=== PATIENT | male | born 1960 | race Caucasian/White ===

== ENCOUNTER 2019-12-26 21:22 | Inpatient (IN) | payer BC, OTHER ==
[2019-12-26 23:00] VITALS: BMI 38.5
[2019-12-26] MEDS ORDERED: Sodium Chloride 0.9% 1,000 ML IV SCH (23:45)
[2019-12-27 00:59] LABS: Bacteria/HPF 2+ HPF (None Seen); Bilirubin Negative (Negative); Blood, Urine Negative (Negative); Clarity Clear (Clear); Glucose, Urine (Dipstick) Normal (Negative); Ketone, Urine Trace mg/dL (Negative); Leukocyte 250 Leu/uL (Negative); Nitrite Negative (Negative); Protein, Urine (Dipstick) 20 mg/dL (Neg-Trace); RBC/HPF 0-3 HPF (0-3); Squamous Epithelial 0-3 HPF (0-3); Urobilinogen Normal mg/dL (Less than 2); WBC/HPF Greater than 50 HPF (0-3); pH, Urine 5.5 (5.0-9.0)
[2019-12-27] MEDS ORDERED: Acetaminophen 650 MG Suppository PR PRN (01:49)
[2019-12-27] MEDS ORDERED: Calcium Carbonate 500 MG ChewTAB PO PRN (01:49)
[2019-12-27] MEDS ORDERED: Acetaminophen 325 MG TAB PO PRN ×2 (01:49→08:59)
[2019-12-27] MEDS ORDERED: Ondansetron PF 4 MG/2 ML Vial IVP PRN (01:49)
[2019-12-27] MEDS ORDERED: Ondansetron ODT 4 MG TAB PO PRN (01:49)
--- NOTE | 2019-12-27 01:57 | PDOC.HHP ---
Hospitalist HPI - History of Present Illness fever chills History of Present Illness: Case of an 59y/o male with pmhx of multiple dvts + pes, ckd and htn who comes to hospital due transfer from another ED due to fever chills. patient refers he was on his usual state of health until today when he started with fever he refers it was 106 and started with uncontrollable chills. he took some tylenol, did not improved for which he seek medical attention. there he was evaluated and found on sepsis parameters with fever at 104 and tachycardia in the 115s for which sepsis bundles were started. u/a was consistent with uti and patient has a history of recurrent prostatitis. patient denies any dysuria, hesitancy does refers some pain in pelvic area but this he refers comes and goes. he does states some darker than usual urine but no other symptoms denies cough myalgias diarrhea, does refers some headache Hospitalist ROS - Review of Systems All other systems reviewed; all pertinent +/- noted in HPI/Subj Hospitalist History - Past Medical History Source: patient - Past Surgical History Past Surgical History: reports: Cholecystectomy - Family History Family History: reports: no pertinent history - Social History Tobacco Type: snuff Alcohol: reports: None Drugs: reports: none - Exam General Appearance: NAD, awake alert Eye: PERRL, anicteric sclera ENT: normocephalic atraumatic, no oropharyngeal lesions Neck: supple, symmetric, no JVD Heart: RRR, no murmur, no gallops Respiratory: CTAB, no wheezes, no rales, no ronchi Gastrointestinal: soft, non-tender, non-distended Extremities: no cyanosis, no clubbing, no edema Skin: normal turgor, no lesions, no rashes Neurological: cranial nerve grossly intact, normal sensation to touch Musculoskeletal: normal tone, normal strength, no muscle wasting Psychiatric: normal affect, normal behavior, A&O x 3 Hospitalist Results - Labs Lab results: Lactic Acid 1.2 mmol/L (0.5-2.2) 12/27/19 00:05 Urine Ketones Trace mg/dL (Negative) A 12/27/19 00:35 Urine Blood Negative (Negative) 12/27/19 00:35 Urine Nitrite Negative (Negative) 12/27/19 00:35 Ur Leukocyte Esterase 250 Farhat/uL (Negative) A 12/27/19 00:35 Urine RBC 0-3 HPF (0-3) 12/27/19 00:35 Urine WBC Greater than 50 HPF (0-3) A 12/27/19 00:35 Ur Squamous Epith Cells 0-3 HPF (0-3) 12/27/19 00:35 Urine Bacteria 2+ HPF (None Seen) A 12/27/19 00:35 Hospitalist H&P A/P - Problem (1) Sepsis Code(s): A41.9 - SEPSIS, UNSPECIFIED ORGANISM Status: Acute (2) Complicated UTI (urinary tract infection) Code(s): N39.0 - URINARY TRACT INFECTION, SITE NOT SPECIFIED Status: Acute (3) Hx of deep venous thrombosis Code(s): Z86.718 - PERSONAL HISTORY OF OTHER VENOUS THROMBOSIS AND EMBOLISM Status: Acute (4) CKD (chronic kidney disease) Code(s): N18.9 - CHRONIC KIDNEY DISEASE, UNSPECIFIED Status: Acute - Plan Plan: Case of an 59y/o male w the stated pmhx sent from another ED due to sepsis secondary to uti sepsis / uti - patient with 106 fever 115 HR with u/a consistent with uti - sepsis bundles were started with ivfs 30x kg - blood cultures + urine culture - started on abx with levaquin - LA normal - r/o covid 19 Hx of PEs + DVTs - on warfarin - f/u inr htn - blood pressure borderline low, arrived at 80s systolic. was given 1L bolus and LA was repeated at 1.2 - holding b/p for now - pt does refer recent decrease in medication due to low b/p
[2019-12-27] MEDS: Sodium Chloride 0.9% 1,000 ML IV SCH ×2 (02:34→19:47)
[2019-12-27 03:17] LABS: SARS-CoV-2 NAA Rapid Test Not Detected (NotDetected)
[2019-12-27 07:17] LABS: INR-International Normal Ratio 3.6; PTT 41.1 sec (22.9-36.1); Prothrombin Time 35.3 sec (12.0-14.7)
[2019-12-27 07:25] LABS: ALT (SGPT) 33 U/L (8-55); AST (SGOT) 22 U/L (5-34); Albumin 3.8 g/dL (3.5-5.0); Alkaline Phosphatase 54 U/L (40-110); Anion Gap 10 mmol/L (10-20); BUN (Urea Nitrogen) 15 mg/dL (8.4-25.7); Bilirubin, Total 1.3 mg/dL (0.2-1.2); Calc. Creatinine Clearance 125 mL/min (70-130); Calcium 7.9 mg/dL (7.8-10.44); Carbon Dioxide 26 mmol/L (22-29); Chloride 104 mmol/L (98-107); Estimated GFR-MDRD 64; Globulin 2.7 g/dL (2.4-3.5); Glucose 115 mg/dL (70-105); Potassium 3.9 mmol/L (3.5-5.1); Protein, Total 6.5 g/dL (6.0-8.3); Sodium 136 mmol/L (136-145)
[2019-12-27] MEDS: Tamsulosin HCl 0.4 MG CAP PO SCH (07:59)
[2019-12-27 08:16] LABS: Band 11 % (5-11); Hemoglobin 14.8 g/dL (14.0-18.0); Lymphocytes 7 % (21-51); MDiff Complete? YES; Mean Corpuscular HGB CONC 32.7 g/dL (32.0-36.0); Mean Corpuscular Hemoglobin 32.6 pg (27.0-31.0); Mean Corpuscular Volume 99.8 fL (78.0-98.0); Mean Platelet Volume 6.2 fL (7.4-10.4); Monocytes 1 % (0-10); Neutrophil 81 % (42-75); Platelet Count 166 thou/uL (130-400); RBC Distribution Width 11.6 % (11.5-14.5); Red Blood Cell (RBC) Count 4.54 mill/uL (4.70-6.10); White Blood Cell (WBC) Count 10.2 thou/uL (4.8-10.8)
[2019-12-27] MEDS ORDERED: cefTRIAXone\\ROCEPHIN 1 GM in Sodium Chloride 0.9% 100 ML IVPB SCH (09:00)
[2019-12-27] MEDS: Acetaminophen 325 MG TAB PO PRN ×3 (12:35→23:20)
--- NOTE | 2019-12-27 18:09 | PDOC.EVN ---
Event Note - Event Note Event Note: patient endorses only symptoms are fever, chills, and sweats. Continued to have recurrent high fevers despite being on 2 different antibiotics covering complicated UTI. Oxygen saturation on RA 88%. Will repeat COVID test, check viral panel, and repeat chest xray. Escalated antibiotics as well
[2019-12-27] MEDS ORDERED: Vancomycin 1 GM in Premix Bag 1 BAG IVPB SCH (18:15)
[2019-12-27] MEDS: Vancomycin 1.5 GRAM/300 ML BAG 1.5 GM in Premix Bag 1 BAG IVPB SCH (19:48)
[2019-12-27] MEDS: HYDROcodone/Acetaminophen 5/325 mg Tablet PO PRN (20:16)
--- NOTE | 2019-12-27 20:18 | RAD ---
EXAM: Single view of the chest HISTORY: Hypoxia COMPARISON: 12/26/2019 FINDINGS: Single view of the chest shows a normal sized cardiomediastinal silhouette. There is no [place] dence of consolidation, mass, or pleural effusion. The bones are unremarkable IMPRESSION: No evidence of acute cardiopulmonary disease
[2019-12-27] MEDS: Zolpidem Tartrate 5 MG TAB PO SCH (21:18)
[2019-12-27] MEDS ORDERED: Cefepime 1 GM in Sodium Chloride 0.9% 100 ML IVPB SCH (23:00)
[2019-12-27] MEDS: Cefepime 2 GM in Sodium Chloride 0.9% 100 ML IVPB SCH (23:14)
[2019-12-28] MEDS: HYDROcodone/Acetaminophen 5/325 mg Tablet PO PRN ×3 (04:37→18:32)
[2019-12-28] MEDS: Sodium Chloride 0.9% 1,000 ML IV SCH ×2 (05:11→21:24)
[2019-12-28] MEDS ORDERED: Vancomycin 1.5 GRAM/300 ML BAG 1.5 GM in Premix Bag 1 BAG IVPB SCH (06:00)
[2019-12-28] MEDS: Acetaminophen 325 MG TAB PO PRN ×3 (06:00→18:31)
[2019-12-28 07:45] LABS: #Lymphocytes 0.8 thou/uL (1.20-3.40); #Monocytes 0.4 thou/uL (0.11-0.59); #Neutrophils 4.9 thou/uL (1.40-6.50); %Eosinophils 0.1 % (0.0-10.0); %Lymphocytes 13.4 % (21.0-51.0); %Neutrophils 79.4 % (42.0-75.0); Hemoglobin 14.2 g/dL (14.0-18.0); Mean Corpuscular HGB CONC 33.9 g/dL (32.0-36.0); Mean Corpuscular Hemoglobin 33.6 pg (27.0-31.0); Mean Corpuscular Volume 99.3 fL (78.0-98.0); Platelet Count 145 thou/uL (130-400); RBC Distribution Width 11.4 % (11.5-14.5); Red Blood Cell (RBC) Count 4.24 mill/uL (4.70-6.10); White Blood Cell (WBC) Count 6.1 thou/uL (4.8-10.8)
[2019-12-28 08:04] LABS: Anion Gap 10 mmol/L (10-20); BUN (Urea Nitrogen) 9 mg/dL (8.4-25.7); Calc. Creatinine Clearance 161 mL/min (70-130); Calcium 7.7 mg/dL (7.8-10.44); Carbon Dioxide 23 mmol/L (22-29); Chloride 106 mmol/L (98-107); Estimated GFR-MDRD 86; Glucose 109 mg/dL (70-105); Potassium 3.5 mmol/L (3.5-5.1); Sodium 135 mmol/L (136-145)
[2019-12-28] MEDS: Vancomycin 1.5 GRAM/300 ML BAG 1.5 GM in Premix Bag 1 BAG IVPB SCH ×2 (09:33→20:29)
[2019-12-28] MEDS: Tamsulosin HCl 0.4 MG CAP PO SCH (09:34)
[2019-12-28 11:55] LABS: SARS-CoV-2 MS2 Positive; SARS-CoV-2 N Gene Negative; SARS-CoV-2 S Gene Negative; SARS-CoV-2 by NAA Not Detected (NotDetected); SARS-CoV-2 orf1ab Negative
[2019-12-28] MEDS: Cefepime 2 GM in Sodium Chloride 0.9% 100 ML IVPB SCH ×2 (12:26→23:46)
[2019-12-28 16:00] LABS: INR-International Normal Ratio 1.9; Prothrombin Time 21.2 sec (12.0-14.7)
--- NOTE | 2019-12-28 16:25 | PDOC.HOSPP ---
- Subjective Encounter Date: 12/28/19 Encounter Time: 09:00 Subjective: overnight, febrile to 102.4. endorses chills and night sweats. - Objective Vital Signs & Weight: Vital Signs (12 hours) Temp Pulse Resp BP Pulse Ox 12/28/19 12:35 99.9 F H 95 16 140/83 95 12/28/19 08:19 98.0 F 70 16 117/77 95 12/28/19 06:06 99.9 F H Weight Weight 284 lb 1 oz I&O: 12/27/19 12/28/19 12/29/19 06:59 06:59 06:59 Intake Total 1270 Output Total 450 250 Balance -450 1020 Result Diagrams: 12/28/19 07:37 12/28/19 07:37 Hospitalist ROS - Review of Systems Constitutional: reports: fever, chills - Medication Medications: Active Medications Generic Name Dose Route Start Last Admin Trade Name Freq PRN Reason Stop Dose Admin Acetaminophen 650 mg 12/27/19 12:28 12/28/19 12:34 Tylenol PO 650 mg Q6H PRN Administration Headache/Fever or Pain Hydrocodone Bitart/Acetaminophen 1 tab 12/27/19 01:49 12/28/19 13:46 [place] 5/325 PO 1 tab Q4H PRN Administration Moderate Pain (4-6) Sodium Chloride 1,000 mls @ 70 mls/hr 12/27/19 02:00 12/28/19 05:11 Normal Saline 0.9% IV Not Given .[id number] JULIETTE Cefepime HCl 2 gm/ Sodium 100 mls @ 200 mls/hr 12/27/19 23:00 12/28/19 12:26 Chloride IVPB 100 mls 1100,2300 JULIETTE Administration Vancomycin HCl 1.5 gm/ Device 300 mls @ 200 mls/hr 12/27/19 20:00 12/28/19 09 :33 IVPB 300 mls 0800,2000 JULIETTE Administration Pantoprazole Sodium 40 mg 12/27/19 09:00 12/28/19 09:34 Protonix PO 40 mg DAILY JULIETTE Administration Tamsulosin HCl 0.4 mg 12/27/19 09:00 12/28/19 09:34 Flomax PO 0.4 mg DAILY JULIETTE Administration Zolpidem Tartrate 10 mg 12/27/19 21:00 12/27/19 21:18 Ambien PO 10 mg HS JULIETTE Administration
[2019-12-28] MEDS ORDERED: Vancomycin HCl 1.5 GM in Sodium Chloride 0.9% 250 ML 300 ML IVPB SCH (18:00)
[2019-12-28] MEDS: Zolpidem Tartrate 5 MG TAB PO SCH (21:22)
[2019-12-29] MEDS: HYDROcodone/Acetaminophen 5/325 mg Tablet PO PRN ×4 (00:27→20:51)
[2019-12-29] MEDS: Acetaminophen 325 MG TAB PO PRN ×2 (03:59→17:30)
[2019-12-29 07:27] LABS: INR-International Normal Ratio 1.5; Prothrombin Time 17.8 sec (12.0-14.7)
[2019-12-29 07:33] LABS: Vancomycin, Trough 10.4 ug/mL
[2019-12-29] MEDS: Tamsulosin HCl 0.4 MG CAP PO SCH (09:03)
[2019-12-29] MEDS: Vancomycin 1.5 GRAM/300 ML BAG 1.5 GM in Premix Bag 1 BAG IVPB SCH ×2 (09:57→15:16)
[2019-12-29] MEDS: Cefepime 2 GM in Sodium Chloride 0.9% 100 ML IVPB SCH ×2 (11:45→22:57)
[2019-12-29] MEDS: Sodium Chloride 0.9% 1,000 ML IV SCH (11:52)
--- NOTE | 2019-12-29 12:02 | PDOC.HOSPP ---
- Subjective Encounter Date: 12/29/19 Encounter Time: 08:30 Subjective: Patient seen and examined for complicated uti. No new complaints. No overnight events. Patient reports no pain. - Objective Vital Signs & Weight: Vital Signs (12 hours) Temp Pulse Resp BP Pulse Ox 12/29/19 11:10 97.9 F 88 20 138/84 95 12/29/19 07:14 98.0 F 78 18 143/94 H 94 L 12/29/19 04:00 98 F 89 18 144/83 H 95 Weight Weight 284 lb 1 oz I&O: 12/28/19 12/29/19 12/30/19 06:59 06:59 06:59 Intake Total 1270 2300 Output Total 250 1800 Balance 1020 500 Result Diagrams: 12/28/19 07:37 12/28/19 07:37 Hospitalist ROS - Review of Systems Constitutional: reports: other. denies: fever, chills, sweats, weakness, malaise Respiratory: denies: cough, dry, shortness of breath, hemoptysis, SOB with excertion, pleuritic pain, sputum, wheezing Cardiovascular: denies: chest pain, palpitations, edema, light headedness Gastrointestinal: denies: nausea, vomiting, abdominal pain, diarrhea, constipation, melena, hematochezia - Medication Medications: Active Medications Generic Name Dose Route Start Last Admin Trade Name Freq PRN Reason Stop Dose Admin Acetaminophen 650 mg 12/27/19 12:28 12/29/19 03:59 Tylenol PO 650 mg Q6H PRN Administration Headache/Fever or Pain Hydrocodone Bitart/Acetaminophen 1 tab 12/27/19 01:49 12/29/19 10:05 [place] 5/325 PO 1 tab Q4H PRN Administration Moderate Pain (4-6) Sodium Chloride 1,000 mls @ 70 mls/hr 12/27/19 02:00 12/29/19 11:52 Normal Saline 0.9% IV 1,000 mls .[id number] JULIETTE Administration Cefepime HCl 2 gm/ Sodium 100 mls @ 200 mls/hr 12/27/19 23:00 12/29/19 11:45 Chloride IVPB 100 mls 1100,2300 JULIETTE Administration Pantoprazole Sodium 40 mg 12/27/19 09:00 12/29/19 09:03 Protonix PO 40 mg DAILY JULIETTE Administration Tamsulosin HCl 0.4 mg 12/27/19 09:00 12/29/19 09:03 Flomax PO 0.4 mg DAILY JULIETTE Administration Zolpidem Tartrate 10 mg 12/27/19 21:00 12/28/19 21:22 Ambien PO 10 mg HS JULIETTE Administration - Exam General Appearance: awake alert Heart: RRR, no murmur, no gallops, no rubs, normal peripheral pulses Respiratory: CTAB, no wheezes, no rales, no ronchi, normal chest expansion, no tachypnea, normal percussion Gastrointestinal: soft, non-tender, non-distended, normal bowel sounds, no palpable masses, no hepatomegaly, no splenomegaly, no bruit, no guarding, no rigidity Extremities: no edema Hosp A/P - Plan DVT proph w/lovenox uti - started on abx with levaquin - LA normal -sepsis is now resolved after antibiotic regimen -nasopharyngeal swab and urine analysis results were NTD - covid 19 ruled out SOB on exertion -will order cardiac stress test to asses heart function Hx of PEs + DVTs - on warfarin - f/u inr htn - manage htn with home regimen ELOS: 2 nights
[2019-12-29] MEDS: Warfarin Sodium 5 MG TAB PO SCH ×2 (15:08→17:28)
[2019-12-29] MEDS: Zolpidem Tartrate 5 MG TAB PO SCH (21:32)
[2019-12-30] MEDS: Sodium Chloride 0.9% 1,000 ML IV SCH ×2 (02:11→15:07)
[2019-12-30 07:23] LABS: INR-International Normal Ratio 1.2; Prothrombin Time 15.5 sec (12.0-14.7)
[2019-12-30 07:36] LABS: Vancomycin, Trough 22.3 ug/mL
[2019-12-30] MEDS ORDERED: Vancomycin HCl 1.25 GM in Sodium Chloride 0.9% 250 ML 250 ML IVPB SCH (09:00)
[2019-12-30] MEDS: Vancomycin 1.5 GRAM/300 ML BAG 1.5 GM in Premix Bag 1 BAG IVPB SCH ×2 (09:17)
[2019-12-30] MEDS: Tamsulosin HCl 0.4 MG CAP PO SCH (10:26)
--- NOTE | 2019-12-30 11:00 | NM ---
EXAM: NM Cardiac Stress W EF WF PROVIDED CLINICAL HISTORY: Dyspnea on exertion/vague chest pressure COMPARISON: None FINDINGS: No significant reversible defect is seen between the stress and resting acquisitions. Gated images de monstrate normal ventricular wall motion and wall thickening. Calculated left ventricular ejection fraction is 64%. IMPRESSION: 1. Normal myocardial perfusion study without a significant reversible defect seen to suggest ischemia . 2. Normal LVEF of 64%.
[2019-12-30 11:48] VITALS: BP 125/82; TEMP 98
[2019-12-30] MEDS: Cefepime 2 GM in Sodium Chloride 0.9% 100 ML IVPB SCH (12:00)
--- NOTE | 2019-12-30 12:27 | PDOC.HOSPP ---
- Subjective Encounter Date: 12/30/19 - Objective Vital Signs & Weight: Vital Signs (12 hours) Temp Pulse Resp BP Pulse Ox 12/30/19 11:43 98.0 F 76 18 125/82 95 12/30/19 07:41 98.1 F 70 18 124/80 96 Weight Weight 284 lb 1 oz I&O: 12/29/19 12/30/19 12/31/19 06:59 06:59 06:59 Intake Total 2300 2550 Output Total 1800 1651 Balance 500 899 Result Diagrams: 12/28/19 07:37 12/28/19 07:37 Hospitalist ROS - Medication Medications: Active Medications Generic Name Dose Route Start Last Admin Trade Name Freq PRN Reason Stop Dose Admin Acetaminophen 650 mg 12/27/19 12:28 12/29/19 17:30 Tylenol PO 650 mg Q6H PRN Administration Headache/Fever or Pain Hydrocodone Bitart/Acetaminophen 1 tab 12/27/19 01:49 12/29/19 20:51 [place] 5/325 PO 1 tab Q4H PRN Administration Moderate Pain (4-6) Sodium Chloride 1,000 mls @ 70 mls/hr 12/27/19 02:00 12/30/19 02:11 Normal Saline 0.9% IV Not Given .[id number] JULIETTE Cefepime HCl 2 gm/ Sodium 100 mls @ 200 mls/hr 12/27/19 23:00 12/29/19 22:57 Chloride IVPB 100 mls 1100,2300 JULIETTE Administration Vancomycin HCl 1.25 gm/ Sodium 250 mls @ 166.667 mls/hr 12/30/19 09:00 10:26 Chloride IVPB 250 mls 0100,0900,1700 JULIETTE Administration Pantoprazole Sodium 40 mg 12/27/19 09:00 12/30/19 10:26 Protonix PO 40 mg DAILY JULIETTE Administration Tamsulosin HCl 0.4 mg 12/27/19 09:00 12/30/19 10:26 Flomax PO 0.4 mg DAILY JULIETTE Administration Zolpidem Tartrate 10 mg 12/27/19 21:00 12/29/19 21:32 Ambien PO 10 mg HS JULIETTE Administration Hosp A/P - Plan uti - started on abx with levaquin - LA normal -sepsis is now resolved after antibiotic regimen -nasopharyngeal swab and urine analysis results were NTD - covid 19 ruled out SOB on exertion -will order cardiac stress test to asses heart function Hx of PEs + DVTs - on warfarin - f/u inr htn - manage htn with home regimen ELOS: 2 nights
[2019-12-30] MEDS: HYDROcodone/Acetaminophen 5/325 mg Tablet PO PRN (13:32)
[2019-12-30] MEDS ORDERED: Warfarin Sodium 7.5 MG TAB PO SCH (17:00)
--- NOTE | 2019-12-30 22:32 | DIS ---
DATE OF ADMISSION: 12/26/2019 DATE OF DISCHARGE: 12/30/2019 HOSPITAL COURSE: Mr. Casanova is a 59-year-old male with a medical history of recurrent PE, DVTs, hypertension, and CKD, who presented with fever, chills and sweats. He was treated at another hospital with antibiotics, but the fevers persisted, so he came to [facility]. Urinalysis was positive for bacteriuria and pyuria, and antibiotics were given in the ED. Urine culture was collected after antibiotics were given, so the urine culture was negative. The patient continued to spike fevers in the hospital as high as 103 Fahrenheit. However, after changing the antibiotics to vancomycin and cefepime, it seemed fever subsided for more than 48 hours. He was discharged on Bactrim with followup appointment with his primary care physician. The patient also complained about dyspnea on exertion. The patient underwent a stress test that was negative for inducible ischemia. PHYSICAL EXAMINATION: VITAL SIGNS: Blood pressure 125/82, pulse 76, respiratory rate 18, oxygen saturation 95% on room air, temperature 98 Fahrenheit. GENERAL: Lying comfortably in bed, awake, alert. HEENT: Normocephalic, atraumatic. CARDIAC: Regular rate and rhythm. No murmurs, gallops, or rubs. LUNGS: Clear to auscultation bilaterally. No wheezes, rales, or rhonchi. ABDOMEN: Soft, nondistended, nontender. Normal bowel sounds. PSYCHIATRIC: Proper mood and affect. Alert and oriented x3. MEDICATION LIST: New medications: Bactrim double strength one tablet b.i.d. for 4 more days. Continued medications: 1. Lisinopril. 2. Hydrochlorothiazide. 3. Metoprolol. 4. Pantoprazole. 5. Tamsulosin. 6. Warfarin. 7. Zolpidem. Discontinued medications: No discontinued medications. Modified medications: No modified medications. Of note, the patient had subtherapeutic INR and prior to discharge, high dose of warfarin was administered to the patient and was educated to follow up with his primary care physician within 3 days to ensure that warfarin dosage is appropriate. Job ID: [id number]
== END 2019-12-30 17:03 | disposition home or self-care (01) | DRG 872 ==
LOC: T4-B 22:34
PROVIDERS: ADMIT Internal Medicine; ATTEND Internal Medicine
DX: A41.9 Sepsis, unspecified organism (principal); N39.0 Urinary tract infection, site not specified; Z20.828 Contact with and (suspected) exposure to other viral communicable diseases; N18.9 Chronic kidney disease, unspecified; I12.9 Hypertensive chronic kidney disease with stage 1 through stage 4 chronic kidney disease, or unspecified chronic kidney disease; R06.02 Shortness of breath; Z90.49 Acquired absence of other specified parts of digestive tract; Z79.899 Other long term (current) drug therapy; Z86.718 Personal history of other venous thrombosis and embolism; Z79.01 Long term (current) use of anticoagulants
CPT/HCPCS: 36415; 71045; 78452; 80048; 80053; 80202; 81001; 82728; 83605; 84145; 84484; 85007; 85025; 85027; 85379; 85610; 85730; 86140; 87040; 87086; 87633; 87635; 93017; 93306; A9500; J0153; J0692; J0696; J1956; J3370; J3490; J7050; U0002; U0003

== ENCOUNTER 2023-02-27 15:00 | Inpatient (IN) | payer BC ==
[2023-02-27] MEDS ORDERED: FLU VACC QS2023-24(6MOS UP)/PF 60 MCG/0.5 ML SYRINGE IM ONE (15:45)
[2023-02-27] MEDS ORDERED: Ondansetron PF 4 MG/2 ML Vial IVP PRN (16:54)
[2023-02-27] MEDS ORDERED: Calcium Carbonate 500 MG ChewTAB PO PRN (16:54)
[2023-02-27] MEDS ORDERED: Ondansetron ODT 4 MG TAB PO PRN (16:54)
[2023-02-27] MEDS: Lactated Ringer's 1,000 ML IV SCH (17:15)
[2023-02-27 17:38] VITALS: BMI 38.5
[2023-02-27 17:51] LABS: Hematocrit 35.2 % (42.0-52.0); Hemoglobin 11.7 g/dL (14.0-18.0); Platelet Count 202 10x3/uL (130-400)
[2023-02-27 18:05] LABS: INR-International Normal Ratio 2.1; PTT 28.8 sec (22.9-36.1); Prothrombin Time 24.3 sec (12.0-14.7)
[2023-02-27] MEDS ORDERED: Phytonadione 10 MG/ML AMP PO SCH (18:30)
[2023-02-27] MEDS ORDERED: ALPRAZolam 1 MG TAB PO PRN (19:19)
[2023-02-27] MEDS: traZODone HCl 50 MG TAB PO SCH (20:17)
[2023-02-27] MEDS: Cyanocobalamin (Vitamin B-12) 1,000 MCG TAB PO SCH (20:17)
[2023-02-27] MEDS: Multivit, Therapeutic 1 TAB PO SCH (20:17)
[2023-02-27] MEDS: Folic Acid 1 MG TAB PO SCH (20:17)
[2023-02-27] MEDS: Pantoprazole 40 MG VIAL IVP SCH (20:18)
[2023-02-27] MEDS ORDERED: Folic Acid 1 MG TAB PO SCH (21:00)
[2023-02-27 23:05] LABS: Hematocrit 31.2 % (42.0-52.0); Hemoglobin 10.5 g/dL (14.0-18.0); Platelet Count 181 10x3/uL (130-400)
[2023-02-28] MEDS: Lactated Ringer's 1,000 ML IV SCH ×3 (00:41→17:13)
[2023-02-28 04:40] LABS: #Eosinphils 0.3 thou/uL (0.0-0.7); #Monocytes 0.7 thou/uL (0.11-0.59); #Neutrophils 6.4 thou/uL (1.40-6.50); %Basophils 0.3 % (0.0-1.0); %Eosinophils 3.4 % (0.0-10.0); %Lymphocytes 19.9 % (21.0-51.0); %Monocytes 7.6 % (0.0-10.0); %Neutrophils 68.5 % (42.0-75.0); Hematocrit 30.6 % (42.0-52.0); Hemoglobin 10.1 g/dL (14.0-18.0); Mean Corpuscular Hemoglobin 32.4 pg (27.0-31.0); Mean Corpuscular Volume 98.1 fl (78.0-98.0); Mean Platelet Volume 8.5 fL (7.4-10.4); Platelet Count 191 10x3/uL (130-400); Red Blood Cell (RBC) Count 3.12 mill/uL (4.70-6.10); White Blood Cell (WBC) Count 9.4 10x3/uL (4.8-10.8)
[2023-02-28 05:07] LABS: ALT (SGPT) 17 U/L (8-55); AST (SGOT) 13 U/L (5-34); Albumin 3.1 g/dL (3.4-4.8); Alkaline Phosphatase 55 U/L (40-110); Anion Gap 11 mmol/L (10-20); BUN (Urea Nitrogen) 10 mg/dL (8.4-25.7); Bilirubin, Total 0.9 mg/dL (0.2-1.2); Calc. Creatinine Clearance 166 mL/min (70-130); Carbon Dioxide 26 mmol/L (23-31); Chloride 107 mmol/L (98-107); Estimated GFR 99; Globulin 2.1 g/dL (2.4-3.5); Glucose 104 mg/dL (80-115); Magnesium 1.9 mg/dL (1.6-2.6); Potassium 3.8 mmol/L (3.5-5.1); Protein, Total 5.2 g/dL (5.8-8.1); Sodium 140 mmol/L (136-145)
[2023-02-28] MEDS: Acetaminophen 325 MG TAB PO PRN ×2 (06:22→14:16)
[2023-02-28] MEDS: BuPROPion XL 150 MG ER.TAB PO SCH (08:51)
[2023-02-28] MEDS: Tamsulosin HCl 0.4 MG CAP PO SCH (08:51)
[2023-02-28] MEDS: Pantoprazole 40 MG VIAL IVP SCH ×2 (08:51→20:49)
[2023-02-28] MEDS ORDERED: Non-Formulary Item 1 EACH (Bupropion Hcl [Bupropion Hcl Sr] 150 MG Tab) PO SCH (09:00)
[2023-02-28 10:30] LABS: INR-International Normal Ratio 1.5; Prothrombin Time 18.6 sec (12.0-14.7)
[2023-02-28] MEDS ORDERED: GoLYTELY 4,000 ml Bottle PO SCH (17:30)
[2023-02-28] MEDS: Cyanocobalamin (Vitamin B-12) 1,000 MCG TAB PO SCH (20:49)
[2023-02-28] MEDS: Multivit, Therapeutic 1 TAB PO SCH (20:49)
[2023-02-28] MEDS: traZODone HCl 50 MG TAB PO SCH (20:49)
[2023-02-28] MEDS: Folic Acid 1 MG TAB PO SCH (20:49)
[2023-03-01] MEDS: Lactated Ringer's 1,000 ML IV SCH (01:21)
[2023-03-01 04:47] LABS: #Eosinphils 0.3 thou/uL (0.0-0.7); #Monocytes 0.5 thou/uL (0.11-0.59); #Neutrophils 4.8 thou/uL (1.40-6.50); %Basophils 0.4 % (0.0-1.0); %Eosinophils 4.4 % (0.0-10.0); %Lymphocytes 22.8 % (21.0-51.0); Hematocrit 30.8 % (42.0-52.0); Hemoglobin 10.1 g/dL (14.0-18.0); Mean Corpuscular HGB CONC 32.8 g/dL (32.0-36.0); Mean Corpuscular Hemoglobin 32.3 pg (27.0-31.0); Mean Corpuscular Volume 98.4 fl (78.0-98.0); Mean Platelet Volume 8.4 fL (7.4-10.4); Platelet Count 185 10x3/uL (130-400); RBC Distribution Width 12.9 % (11.5-14.5); Red Blood Cell (RBC) Count 3.13 mill/uL (4.70-6.10); White Blood Cell (WBC) Count 7.5 10x3/uL (4.8-10.8)
[2023-03-01 05:16] LABS: Anion Gap 11 mmol/L (10-20); BUN (Urea Nitrogen) 5 mg/dL (8.4-25.7); Calc. Creatinine Clearance 189 mL/min (70-130); Calcium 8.1 mg/dL (7.8-10.44); Carbon Dioxide 25 mmol/L (23-31); Chloride 109 mmol/L (98-107); Estimated GFR 102; Glucose 105 mg/dL (80-115); Potassium 3.6 mmol/L (3.5-5.1); Sodium 141 mmol/L (136-145)
[2023-03-01] MEDS: Acetaminophen 325 MG TAB PO PRN (05:58)
[2023-03-01 06:32] LABS: INR-International Normal Ratio 1.3; Prothrombin Time 17.2 sec (12.0-14.7)
[2023-03-01] MEDS ORDERED: Lactated Ringer's 1,000 ML IV SCH (07:54)
[2023-03-01] MEDS: Pantoprazole 40 MG VIAL IVP SCH (08:35)
[2023-03-01] MEDS: BuPROPion XL 150 MG ER.TAB PO SCH (09:03)
[2023-03-01] MEDS: Tamsulosin HCl 0.4 MG CAP PO SCH (09:03)
[2023-03-01] MEDS ORDERED: Ketamine 50 MG/ML (10ML VIAL) ONE (11:51)
[2023-03-01] MEDS ORDERED: PROPOFOL 200 MG/20 ML VIAL ONE (12:04)
[2023-03-01] MEDS ORDERED: Lisinopril 20 MG TAB PO SCH (14:45)
[2023-03-01] MEDS ORDERED: Warfarin Sodium 5 MG TAB PO SCH ×2 (15:00→17:00)
[2023-03-01 15:01] VITALS: BP 159/87; TEMP 97.8
[2023-03-02] MEDS ORDERED: Lisinopril 20 MG TAB PO SCH (09:00)
== END 2023-03-01 15:29 | disposition home or self-care (01) | DRG 378 ==
LOC: 2SW 15:00
PROVIDERS: ADMIT Internal Medicine; ATTEND Internal Medicine
PROC: 0DJ08ZZ Inspection of Upper Intestinal Tract, Via Natural or Artificial Opening Endoscopic (ICD-10-PCS; principal; 2023-03-01)
PROC: 0DJD8ZZ Inspection of Lower Intestinal Tract, Via Natural or Artificial Opening Endoscopic (ICD-10-PCS; 2023-03-01)
DX: K57.31 Diverticulosis of large intestine without perforation or abscess with bleeding (principal); D62 Acute posthemorrhagic anemia; F41.9 Anxiety disorder, unspecified; G47.33 Obstructive sleep apnea (adult) (pediatric); E66.9 Obesity, unspecified; F17.220 Nicotine dependence, chewing tobacco, uncomplicated; N18.9 Chronic kidney disease, unspecified; I12.9 Hypertensive chronic kidney disease with stage 1 through stage 4 chronic kidney disease, or unspecified chronic kidney disease; K64.8 Other hemorrhoids; Z79.899 Other long term (current) drug therapy; Z79.01 Long term (current) use of anticoagulants; Z86.718 Personal history of other venous thrombosis and embolism; Z86.711 Personal history of pulmonary embolism; Z90.49 Acquired absence of other specified parts of digestive tract; Z98.890 Other specified postprocedural states; Z68.38 Body mass index [BMI] 38.0-38.9, adult
CPT/HCPCS: 36415; 80048; 80053; 83735; 85025; 85610; 86850; 86900; 86901; C9113; J3430; J7120